=== PATIENT | female | born 2005 | race African-American/Black ===

== ENCOUNTER 2024-04-18 19:38 | Emergency (ER) | payer MEDICAID ==
[~2024-04-18] VITALS: Ht 175.3 cm; Wt 62.0 kg
[2024-04-18 19:58] LABS: COVID AG,FIA SOURCE NASAL SWAB
[2024-04-18 20:21] LABS: RAPID GROUP A STREP NEGATIVE (NEGATIVE)
[2024-04-18 20:28] LABS: SARS-COV2 (COVID) ANTIGEN,FIA Negative (Negative)
[2024-04-18 20:30] LABS: INFLUENZA TYPE A NEGATIVE FOR TYPE A (NEGATIVE); INFLUENZA TYPE B NEGATIVE FOR TYPE B (NEGATIVE)
[2024-04-18] MEDS: PENICILLIN V POTASSIUM 500 MG TABLET PO ONE (23:16)
[2024-04-18] MEDS ORDERED: PENI500T2 PO (23:57)
[2024-04-19 00:48] VITALS: BP 118/65; PULSE 89; RESP 18; TEMP 97.9
== END 2024-04-19 02:04 | disposition home or self-care (01) ==
LOC: EMS 19:38
DX: J03.90 Acute tonsillitis, unspecified (principal); Z91.018 Allergy to other foods; Z20.822 Contact with and (suspected) exposure to COVID-19
CPT/HCPCS: 87430; 87804; 99283

== ENCOUNTER 2024-05-04 16:32 | Emergency (ER) | payer MEDICAID ==
[~2024-05-04] VITALS: Ht 170.2 cm; Wt 62.7 kg
[~2024-05-04 16:32] MED LIST: PENI500T2 PO
[2024-05-04 17:58] VITALS: TEMP 98.5
[2024-05-04 19:03] LABS: APPEARANCE,URINE CLEAR (CLEAR); BILIRUBIN,URINE NEGATIVE (NEGATIVE); COLOR,URINE YELLOW (YELLOW); GLUCOSE, URINE (UA) NEGATIVE (NEGATIVE); KETONES,URINE NEGATIVE (NEGATIVE); LEUKOCYTE ESTERASE ,URINE TRACE (NEGATIVE); NITRATE,URINE NEGATIVE (NEGATIVE); OCCULT BLOOD,URINE NEGATIVE (NEGATIVE); PH,URINE 5.5 (5.0-8.0); PROTEIN,URINE TRACE mg/dL (NEGATIVE); SPECIFIC GRAVITIY, URINE 1.032 (1.003-1.030); UROBILINOGEN,URINE <=1.0 mg/dL (<=1.0)
[2024-05-04 19:08] LABS: BACTERIA,URINE Rare /HPF (None Seen); RBC,URINE 0-2 /HPF (0-2); SQUAMOUS EPITHELIAL CELL,UR Few /LPF (None Seen)
[2024-05-04 19:09] LABS: HCG,QUAL URINE NEGATIVE (NEGATIVE)
[2024-05-04] MEDS ORDERED: METR500 PO (20:26)
[2024-05-04] MEDS: MetroNIDAZOLE 250 MG TABLET PO ONE (20:41)
[2024-05-04 20:52] VITALS: BP 130/63; PULSE 72; RESP 16
== END 2024-05-04 20:56 | disposition home or self-care (01) ==
LOC: EMS 16:32
DX: N76.0 Acute vaginitis (principal); Z91.018 Allergy to other foods
CPT/HCPCS: 81001; 84703; 87491; 87591; 99283